=== PATIENT | female | born 1985 | race Two or more races ===

== ENCOUNTER → 2016-11-20 | Outpatient (CLI) | payer MEDICAID | LOC: RAD 14:19 | PROVIDERS: ATTEND Nurse Practitioner Women's Health | DX: Z34.81 Encounter for supervision of other normal pregnancy, first trimester (principal) | CPT/HCPCS: 76801 ==

== ENCOUNTER → 2017-01-18 | Outpatient (CLI) | payer SELFPAY ==
--- NOTE | 2017-01-18 15:24 | RADIOLOGY REPORT (SQ) ---
EXAM DESCRIPTION: U/S OB 14+ TRNABD 1GES W/O DOP COMPLETED DATE/TIME: 01/18/2017 3:11 pm REASON FOR STUDY: ENCOUNTER FOR SUPERVISION OF OTHER NORMAL , SECOND TRIMESTER Z34.82 ENCO UNTER FOR SUPRVSN OF NORMAL , SECOND TRI COMPARISON: None. TECHNIQUE: Static and Dynamic grayscale imaging performed of gravid uterus using transabdominal appr oach. Additional selected color Doppler and spectral images recorded. All stored on PACS. LIMITATIONS: None. FINDINGS: EGA: 19 weeks 6 days MIREYA: 06/08/2017 EFW: 317 g PERCENTILE: Not applicable. Fetus less than or equal to 20 weeks gestation. GIAN: Largest pocket 5 cm. PLACENTA: Posterior. PRESENTATION: Variable. ANATOMY: HEART RATE: 135 beats per minute. FOUR CHAMBER HEART: Visualized. THREE VESSEL CORD: Yes. CORD INSERTION: Visualized. KIDNEYS AND BLADDER: Urinary bladder not well visualized. STOMACH: Visualized. SPINE: Normal as visualized. BRAIN AND LATERAL VENTRICLES: Visualized. Appear normal. OTHER: No other significant finding. MATERNAL ADNEXA: Maternal ovaries not visualized. CERVICAL LENGTH: 3.1 cm. Closed. OTHER: No other significant finding. IMPRESSION: LIVING INTRAUTERINE . ESTIMATED GESTATIONAL AGE 19 weeks 6 days. NO VISUALIZED ANOMALIES. Trimester of : Second trimester - 13 weeks 1 day to 27 weeks 6 days. TECHNICAL DOCUMENTATION: JOB ID: [id number] [employer]- All Rights Reserved
== END ==
LOC: RAD 14:23
PROVIDERS: ATTEND Nurse Practitioner Women's Health
DX: Z34.82 Encounter for supervision of other normal pregnancy, second trimester (principal)
CPT/HCPCS: 76805

== ENCOUNTER → 2017-02-12 | Outpatient (CLI) | payer SELFPAY ==
--- NOTE | 2017-02-12 14:31 | RADIOLOGY REPORT (SQ) ---
EXAM DESCRIPTION: U/S OB 14+ TRNABD 1GES W/O DOP COMPLETED DATE/TIME: 02/12/2017 2:07 pm REASON FOR STUDY: Z34.82 ENCOUNTER FOR SUPRVSN OF NORMAL , SECOND TRI COMPARISON: 01/18/2017. TECHNIQUE: Limited transabdominal grayscale ultrasound for evaluation of specific requested obstetri joe parameters. LIMITATIONS: Limited study performed to exam the bladder which was not visualized on prior ult rasound. FINDINGS: BLADDER: Fluid filled bladder is visualized. CERVICAL LENGTH: 5.9 cm. Closed. FHR: 163 beats per minute. PRESENTATION: Breech. OTHER: No other significant findings. IMPRESSION: LIMITED OBSTETRICAL ULTRASOUND WITH MEASURED PARAMETERS DELINEATED ABOVE. Trimester of : Second trimester - 13 weeks 1 day to 27 weeks 6 days. TECHNICAL DOCUMENTATION: JOB ID: [id number] [place] [employer]- All Rights Reserved
== END ==
LOC: RAD 13:02
PROVIDERS: ATTEND Nurse Practitioner Women's Health
DX: Z34.82 Encounter for supervision of other normal pregnancy, second trimester (principal)
CPT/HCPCS: 76805

== ENCOUNTER → 2017-05-13 | Outpatient (CLI) | payer SELFPAY ==
--- NOTE | 2017-05-13 18:39 | RADIOLOGY REPORT (SQ) ---
EXAM DESCRIPTION: U/S OB 14+ TRNABD 1GES W/O DOP COMPLETED DATE/TIME: 05/13/2017 3:52 pm REASON FOR STUDY: ENCOUNTER FOR SUPERVISION OF OTHER NORMAL , THIRD TRIMESTER (Z34.8 Z34.83 ENCOUNTER FOR SUPRVSN OF NORMAL , THIRD TRIM COMPARISON: 02/12/2017. TECHNIQUE: Static and Dynamic grayscale imaging performed of gravid uterus using transabdominal appr oach. Additional selected color Doppler and spectral images recorded. All stored on PACS. LIMITATIONS: Limited anatomic imaging due to advanced age and position. FINDINGS: EGA: 35 week 4 day. MIREYA: 06/13/2017. EFW: 2935 g. grams PERCENTILE: 48%. GIAN: 9.8 cm. PLACENTA: Posterior fundal. PRESENTATION: Cephalic. HEART RATE: 162 beats per minute. CERVICAL LENGTH: Not adequately visualized. IMPRESSION: Limited anatomic survey due to advanced age and position. ESTIMATED GESTATIONAL AGE 35 WEEK 4 DAY. NO GROSS ABNORMAL FINDINGS. Trimester of : Third trimester - 28 weeks to delivery. TECHNICAL DOCUMENTATION: JOB ID: [id number] [employer]- All Rights Reserved
== END ==
LOC: RAD 15:05
PROVIDERS: ATTEND Nurse Practitioner Women's Health
DX: Z34.83 Encounter for supervision of other normal pregnancy, third trimester (principal)
CPT/HCPCS: 76805

== ENCOUNTER 2017-05-31 05:24 | Outpatient (CLI) | payer SELFPAY ==
[2017-05-31 06:46] LABS: URINE BARBITURATES SCREEN NEGATIVE; URINE METHADONE SCREEN NEGATIVE; URINE OPIATES LOW NEGATIVE; URINE PHENCYCLIDINE SCREEN NEGATIVE
[2017-05-31] MEDS ORDERED: HYDROXYZINE PAMOATE 50 MG CAPSULE PO ONE (06:55)
[2017-05-31] MEDS ORDERED: HYDROXYZINE PAMOATE 50 MG CAPSULE ONE (07:00)
--- NOTE | 2017-05-31 07:00 | Non Stress Test Report ---
Non Stress Test Datetime Report Generated by CPN: 05/31/2017 07:00 DEMOGRAPHIC EGA NST: 39.0 INDICATION Indication for Study: Other Indication for Study (NST) Other: contractions/labor check MONITORING Monitor Explained: Monitor Explained; Test Explained; Patient Verbalized Understanding Time on Monitor: 05/31/2017 06:10 Time off Monitor: 05/31/2017 06:45 NST Duration: 35 NST INTERVENTIONS NST Interventions: PO Hydration; Reposition Patient Physician Notified NST: Dr. Chen BABY A: [id number] BABY A Contraction Frequency : 1-4 FHR Baseline : 140 Accelerations : 15X15 Decelerations : None Variability : Moderate 6-25bpm NST Review: Meets Criteria for Reactive NST NST Review and Verified By : marina, rn NST REPORT Report Trigger: Send Report
[2017-05-31] MEDS ORDERED: OXYTOCIN/NORMAL SALINE 1,000 ML IV PRN (23:48)
[2017-05-31] MEDS ORDERED: BENZOCAINE/MENTHOL AEROSOL SPRAY 56 ML TOP PRN (23:48)
[2017-05-31] MEDS ORDERED: ZOLPIDEM TARTRATE 5 MG TABLET PO PRN (23:48)
[2017-05-31] MEDS ORDERED: ACETAMINOPHEN WITH CODEINE #3 TABLET PO PRN ×2 (23:48)
[2017-05-31] MEDS ORDERED: DIPH/PERTUSS(ACELL)/TETANUS VAC/PF 0.5 ML SYR (>=10YO) IM PRN (23:48)
[2017-05-31] MEDS ORDERED: MEASLES,MUMPS&RUBELLA VACC/PF 0.5 ML VIAL SUBCUT PRN (23:48)
[2017-05-31] MEDS ORDERED: DIBUCAINE 1% OINTMENT 28 GM TP PRN (23:48)
[2017-06-01] MEDS ORDERED: IBUPROFEN 800 MG TABLET PO SCH (06:00)
[2017-06-01] MEDS ORDERED: PRENATAL VITAMIN W-O CA NO5/FE FUMARATE/FA CAPSULE PO SCH (10:00)
[2017-06-01] MEDS ORDERED: DOCUSATE SODIUM 100 MG CAPSULE PO SCH (10:00)
[2017-06-01] MEDS ORDERED: SENNOSIDES/DOCUSATE 8.6-50 MG 1 EACH TABLET PO SCH (10:00)
[2017-06-01] MEDS ORDERED: FERROUS SULFATE 325 MG TABLET PO SCH (10:00)
== END 2017-05-31 07:16 | disposition home or self-care (01) ==
LOC: LC 05:24
PROVIDERS: ATTEND Obstetrics & Gynecology
PROC: 4A1HXCZ Monitoring of Products of Conception, Cardiac Rate, External Approach (ICD-10-PCS; principal; 2017-05-31)
DX: O47.1 False labor at or after 37 completed weeks of gestation (principal); Z3A.39 39 weeks gestation of pregnancy
CPT/HCPCS: 80307

== ENCOUNTER 2017-05-31 19:39 | Inpatient (IN) | payer SELFPAY ==
[2017-05-31] MEDS ORDERED: MISOPROSTOL 0.2 MG TABLET ONE (20:15)
[2017-05-31] MEDS ORDERED: LIDOCAINE 1% INJ-PF (10 MG/ML) 30 ML SDV ONE (20:15)
[2017-05-31] MEDS ORDERED: OXYTOCIN/NORMAL SALINE 20 UNIT/1,000 ML RTUINJ ONE (20:15)
[2017-05-31] MEDS ORDERED: RINGERS SOLUTION,LACTATED 1,000 ML IV PRN (20:16)
[2017-05-31 20:38] LABS: ABSOLUTE BASOPHILS # (AUTO) 0.1 10^3/uL (0.0-0.2); ABSOLUTE EOSINOPHILS # (AUTO) 0.1 10^3/uL (0.0-0.6); ABSOLUTE LYMPHOCYTES (AUTO) 2.6 10^3/uL (0.5-4.7); ABSOLUTE MONOCYTES (AUTO) 0.8 10^3/uL (0.1-1.4); ABSOLUTE NEUT (AUTO) 9.5 10^3/uL (1.7-8.2); EOSINOPHILS % (AUTO) 0.6 % (0-6); HEMATOCRIT 35.9 % (36.0-47.0); HGB HCT DIFFERENCE 0.1; MEAN CORPUSCULAR HEMOGLOBIN 28.4 pg (27.0-33.4); MEAN CORPUSCULAR HGB CONC 33.6 g/dL (32.0-36.0); MEAN CORPUSCULAR VOLUME 85 fl (80-97); RED BLOOD COUNT 4.24 10^6/uL (3.72-5.28); RED CELL DISTRIBUTION WIDTH 14.3 % (11.5-14.0); SEGMENTED NEUTROPHILS % (AUTO) 72.4 % (42-78); WHITE BLOOD COUNT 13.1 10^3/uL (4.0-10.5)
[2017-05-31 20:46] LABS: APPEARANCE,URINE CLOUDY; BILIRUBIN,URINE NEGATIVE (NEGATIVE); GLUCOSE, URINE NEGATIVE (NEGATIVE); KETONES,URINE TRACE mg/dL (NEGATIVE); LEUKOCYTE ESTERASE,URINE LARGE (NEGATIVE); NITRITE,URINE NEGATIVE (NEGATIVE); PROTEIN,URINE NEGATIVE (NEGATIVE); URINE SPECIFIC GRAVITY 1.011
[2017-05-31] MEDS ORDERED: EPHEDRINE SULFATE INJ 50 MG/1 ML AMPULE ONE (20:51)
[2017-05-31] MEDS ORDERED: FENTANYL/BUPIVACAINE/NS/PF 0 MCG/0 ML RTUINJ EPI ONE (20:52)
[2017-05-31] MEDS ORDERED: BUPIVACAINE HCL 0.25 % INJ/PF (2.5 MG/1 ML) 30 ML VIAL ONE (20:52)
[2017-05-31 21:13] LABS: URINE BARBITURATES SCREEN NEGATIVE; URINE METHADONE SCREEN NEGATIVE; URINE OPIATES LOW NEGATIVE; URINE PHENCYCLIDINE SCREEN NEGATIVE
[2017-05-31] MEDS ORDERED: ZOLPIDEM TARTRATE 5 MG TABLET PO PRN (22:08)
[2017-05-31] MEDS ORDERED: OXYTOCIN/NORMAL SALINE 20 UNIT/1,000 ML RTUINJ IV PRN (22:08)
[2017-05-31] MEDS ORDERED: DIPHENHYDRAMINE HCL 25 MG CAPSULE PO PRN (22:08)
[2017-05-31] MEDS ORDERED: BENZOCAINE/MENTHOL AEROSOL SPRAY 56 ML TOP PRN (22:08)
[2017-05-31] MEDS ORDERED: PSEUDOEPHEDRINE HCL 30 MG TABLET PO PRN (22:08)
[2017-05-31] MEDS ORDERED: PROMETHAZINE HCL 25 MG TABLET PO PRN (22:08)
[2017-05-31] MEDS ORDERED: MAGNESIUM HYDROXIDE SUSP 30 ML UDCUP PO PRN (22:08)
[2017-05-31] MEDS ORDERED: NA PHOS,M-B/NA PHOS,DI-BA (ADULT) 133 ML ENEMA PR PRN (22:08)
[2017-05-31] MEDS ORDERED: GLYCERIN/WITCH HAZEL LEAF 1 EACH MED..PAD TP PRN (22:08)
[2017-05-31] MEDS ORDERED: DIPH/PERTUSS(ACELL)/TETANUS VAC/PF 0.5 ML SYR (>=10YO) IM PRN (22:08)
[2017-05-31] MEDS ORDERED: ACETAMINOPHEN 650 MG SUPP.RECT PR PRN (22:08)
[2017-05-31] MEDS ORDERED: PROMETHAZINE HCL 25 MG SUPP.RECT PR PRN (22:08)
[2017-05-31] MEDS ORDERED: MEASLES,MUMPS&RUBELLA VACC/PF 0.5 ML VIAL SUBCUT PRN (22:08)
[2017-05-31] MEDS ORDERED: ACETAMINOPHEN WITH CODEINE #3 TABLET PO PRN ×2 (22:08)
[2017-05-31] MEDS ORDERED: PROMETHAZINE HCL INJ 25 MG/1 ML VIAL IV PRN (22:08)
[2017-05-31] MEDS ORDERED: DIBUCAINE 1% OINTMENT 28 GM TP PRN (22:08)
--- NOTE | 2017-05-31 23:38 | Delivery Summary ---
Del Sum A-C Datetime Report Generated by CPN: 05/31/2017 23:37 DELIVERY PERSONNEL DELIVERY PERSONNEL: [id number] Delivery Doctor:: Sugey Denise MD Labor and Delivery Nurse:: Renetta Coy RNtailor men's ready to wear Nurse:: Gretchen Lange RN Tool Clerk/VULCANIZER: Kate Escamilla, VULCANIZER MATERNAL INFORMATION Delivery Anesthesia: Pudendal Medications After Delivery: Pitocin Bolus-Please Comment; Pitocin Drip 20 Units/1000ml NSS; Other-Please Comment Meds After Delivery Comment: cytotec 1000 per rectum Estimated Blood Loss (ml): 300 Maternal Complications: Precipitous Labor (<3hrs) Provider Comments: VFI delivered in [place] presentation with tight nuchal cord unable to reduce therefore delivered through. Shoulders and body delivered without difficulty. cord doubly clamped and cut and infant to maternal abdomen for NRP. Placenta delivered intact spontaneously. FF at U. Cytotec given [place] 1000mcg due to macrosomia. Preliminary weight in room 10#4oz. Apgars 9/9. Await official weight. Mother and baby stable upon provider leaving the room. LABOR SUMMARY EDC: 06/08/2017 00:00 No. Babies in Womb: 1 Attempted: No Labor Anesthesia: None LABOR INFORMATION Reason for Induction: Not Applicable Onset of Labor: 05/31/2017 20:11 Complete Dilatation: 05/31/2017 21:40 Oxytocin: N/A Group B Beta Strep: Negative Antibiotics # of Doses: 0 Steroids Given: None Reason Steroids Not Administered: Not Applicable MEMBRANES Membranes Rupture Method: Artificial Rupture of Membranes: 05/31/2017 21:44 Length of Rupture (hr): 0.05 Amniotic Fluid Color: Clear Amniotic Fluid Amount: Small Amniotic Fluid Odor: None STAGES OF LABOR Stage 1 hr: 1 Stage 1 min: 29 Stage 2 hr: 0 Stage 2 min: 7 VAGINAL DELIVERY Episiotomy: None Laceration #1: Perineal Laceration Extension #1: First Degree Sponge Count Correct: Yes Sharps Count Correct: Yes BABY A INFORMATION Infant Delivery Date/Time: 05/31/2017 21:47 Method of Delivery: Vaginal Born in Route : No : N/A Forceps: N/A Vacuum Extraction: N/A Shoulder Dystocia : No PRESENTATION/POSITION BABY A Presentation: Cephalic Cephalic Presentation: Vertex Vertex Position: Left Occipital Anterior Breech Presentation: N/A PLACENTA INFORMATION BABY A Placenta Method of Delivery: Spontaneous Placenta Status: Delivered SCORES BABY A Heart Rate 1 min: >100 bpm Resp Effort 1 min: Good Cry Reflex Irritability 1 min: Cough or Sneeze or Pulls Away Muscle Tone 1 min: Active Motion Color 1 min: Body [place], Extremities Blue SCORE 1 MIN: 9 Heart Rate 5 min: >100 bpm Resp Effort 5 min: Good Cry Reflex Irritability 5 min: Cough or Sneeze or Pulls Away Muscle Tone 5 min: Active Motion Color 5 min: Body [place], Extremities Blue SCORE 5 MIN: 9 INFANT INFORMATION BABY A Gestational Age at Delivery: 38.6 Gestational Status: Early Term- 37- 38.6 Weeks Infant Outcome : Liveborn Condition : Stable (Annotations: Data stored by [facility] on behalf of user) Sex: Male IDENTIFICATION BABY A Infant Verification Date/Time: 05/31/2017 22:03 ID Band Number: [id number] Mother's Name Verified: Yes RN Verifying Infant: Hilda KAMRYN Lange Additional Verifying Personnel: Fitz Levy RN WEIGHT/LENGTH BABY A Infant Birthweight (gm): 4720 Weight (lb): 10 Weight (oz): 6 Length (in): 22.50 Length (cm): 57.15 CORD INFORMATION BABY A No. Cord Vessels: 3 Nuchal Cord : Around Neck x1, Tight Cord Blood Taken: Yes-For Storage (Mom's Blood type +) Infant Suction: Mouth; Nose ASSESSMENT BABY A Complications: None Physical Findings at Delivery: Within Normal Limits Respirations: Appears Normal Career Resource Specialist/ALS Called : No Care By: Hilda Lange RN Transferred To: Remains with Mother SIGNATURES Signature: with User ID: [email or web address]
--- NOTE | 2017-06-01 00:19 | Admission Physical ---
Datetime Report Generated by CPN: 06/01/2017 00:18 CURRENT ADMISSION Chief Complaint: Uterine Contractions Indication for Induction: Not Applicable Indication for Induction: Term, Intrauterine ; Active Labor; Intact Membranes Admit Plan: Admit to Unit; Initiate Labor Protocol ALLERGIES Medication Allergies: No Medication Allergies: No Known Allergies (03/15/2015) Latex: No Latex Allergies Food Allergies: N/A OBSTETRICAL HISTORY EDC: 06/08/2017 00:00 : 3 Para: 2 Term: 2 : 0 SAB: 0 IAB: 0 Ectopic: 0 Livin Cesareans: 0 VBACs: 0 Multiple Births: 0 Gestational Diabetes: No Rh Sensitization: No Incompetent Cervix: No JERRICA: No Infertility: No ART Treatment: No Uterine Anomaly: No IUGR: No Hx Previous C/S: No Macrosomia: Yes Hx Loss/Stillborn: No PIH: No Hx : No Placenta Previa/Abruption: No Depression/PP Depression: No PTL/PROM: No Post Hemorrhage: No Current Procedures: Ultrasound; NST Obstetrical History Comments: [id number] G3-current SEE RECORDS Alcohol: No Marijuana : No Cocaine: No Other Illicit Drugs: No Cigarettes: Former Smoker. [id number] MEDICAL HISTORY Blood Transfusion: No Pulmonary Disease (Asthma, TB): No Breast Disease: No Hypertension: No Book Publisher Surgery: No Heart Disease: No Hosp/Surgery: No Autoimmune Disorder: No Anesthetic Complications: No Abnormal Pap Smear: No Neuro/Epilepsy: No Psychiatric Disorders: No Other Medical Diseases: No Hepatitis/Liver Disease: No Significant Family History: No Varicosities/Phlebitis: No Trauma/Violence : No Thyroid Dysfunction: No INFECTIOUS HISTORY Gonorrhea: No Genital Herpes: No Chlamydia: No Tuberculosis: No Syphilis: No Hepatitis: No HIV/AIDS Exposure: No Rash or Viral Illness: No HPV: No PHYSICAL EXAM General: Normal HEENT: Normal Neurologic: Normal Thyroid: Normal Heart: Normal Lungs: Normal Breast: Deferred Back: Normal Abdomen: Normal Genitourinary Exam: Normal Extremities: Normal DTRs: Normal Pelvic Type: Adequate Vital Signs: Reviewed VAGINAL EXAM Dilatation: 7 Effacement: 100 Station: -1 Contraction Comments: q 2-3 FETUS A EGA: 38.6 Monitoring: External US FHR- Baseline: 145 Variability: Moderate 6-25bpm Accelerations: 15X15 Decelerations: None FHR Category: Category I FHR Comments: reassuring FHR Presentation: Vertex Admit Comment: 31yo at 38+6ega by LMP c/w 11+3eg US presents for regular uterine ctx since this am. GBS negative. and care followed at the [facility]. H/o 9#15 and 10#15 ([facility] notes state 9#5oz and 10#). Translation services used. Pt reports ctx all day since discharged this am and reports poss LOF at 1400 today. Bulging bag of water on exam. EFW on 05/13 was 2935g (6#4oz) EFW limited by habitus 8# and pelvis adequate for TORI. US printed for chart. Failed 1 hr GTT - passed 3 hr GTT. AFP negaitve. Admit to L_D. Pelvis adequate for TORI and proven to at least 10#. records reviewed and placed in chart. PLANS FOR LABOR AND DELIVERY Labor and Delivery: None Pain Management: Epidural Feeding Preference: Both Benefit of Breast Feed Discussed: Yes Circumcision: N/A INFORMED CONSENT Informed Consent Obtained: Vaginal Delivery; Risks, Benefits and Alternatives Discussed Signature: with User ID: [email or web address]
[2017-06-01] MEDS ORDERED: PROMETHAZINE HCL INJ 25 MG/1 ML VIAL IV PRN ×2 (00:34→06:02)
[2017-06-01] MEDS ORDERED: PSEUDOEPHEDRINE HCL 30 MG TABLET PO PRN ×2 (00:34→06:02)
[2017-06-01] MEDS ORDERED: ZOLPIDEM TARTRATE 5 MG TABLET PO PRN ×2 (00:34→06:00)
[2017-06-01] MEDS ORDERED: OXYTOCIN/NORMAL SALINE 1,000 ML IV PRN (00:34)
[2017-06-01] MEDS ORDERED: DIBUCAINE 1% OINTMENT 28 GM TP PRN ×2 (00:34→06:00)
[2017-06-01] MEDS ORDERED: DIPH/PERTUSS(ACELL)/TETANUS VAC/PF 0.5 ML SYR (>=10YO) IM PRN ×2 (00:34→06:01)
[2017-06-01] MEDS ORDERED: DIPHENHYDRAMINE HCL 25 MG CAPSULE PO PRN ×2 (00:34→06:02)
[2017-06-01] MEDS ORDERED: MAGNESIUM HYDROXIDE SUSP 30 ML UDCUP PO PRN ×2 (00:34→06:02)
[2017-06-01] MEDS ORDERED: PROMETHAZINE HCL 25 MG SUPP.RECT PR PRN (00:34)
[2017-06-01] MEDS ORDERED: BENZOCAINE/MENTHOL AEROSOL SPRAY 56 ML TOP PRN ×2 (00:34→06:01)
[2017-06-01] MEDS ORDERED: ACETAMINOPHEN 650 MG SUPP.RECT PR PRN ×2 (00:34→06:02)
[2017-06-01] MEDS ORDERED: MEASLES,MUMPS&RUBELLA VACC/PF 0.5 ML VIAL SUBCUT PRN ×2 (00:34→06:01)
[2017-06-01] MEDS ORDERED: PROMETHAZINE HCL 25 MG TABLET PO PRN ×2 (00:34→06:02)
[2017-06-01] MEDS ORDERED: GLYCERIN/WITCH HAZEL LEAF 1 EACH MED..PAD TP PRN ×2 (00:34→06:02)
[2017-06-01] MEDS ORDERED: ACETAMINOPHEN WITH CODEINE #3 TABLET PO PRN ×3 (00:34→06:00)
[2017-06-01] MEDS ORDERED: NA PHOS,M-B/NA PHOS,DI-BA (ADULT) 133 ML ENEMA PR PRN ×2 (00:34→06:02)
[2017-06-01] MEDS ORDERED: IBUPROFEN 800 MG TABLET PO SCH ×2 (06:00)
[2017-06-01] MEDS ORDERED: OXYTOCIN/NORMAL SALINE 20 UNIT/1,000 ML RTUINJ IV PRN (06:02)
[2017-06-01] MEDS: IBUPROFEN 800 MG TABLET PO SCH ×3 (06:17→22:08)
[2017-06-01 07:51] LABS: HEMATOCRIT 33.7 % (36.0-47.0); HEMOGLOBIN 11.2 g/dL (12.0-15.5); HGB HCT DIFFERENCE -0.1; MEAN CORPUSCULAR HEMOGLOBIN 28.5 pg (27.0-33.4); MEAN CORPUSCULAR HGB CONC 33.4 g/dL (32.0-36.0); MEAN CORPUSCULAR VOLUME 85 fl (80-97); RED BLOOD COUNT 3.94 10^6/uL (3.72-5.28); RED CELL DISTRIBUTION WIDTH 14.4 % (11.5-14.0); WHITE BLOOD COUNT 13.4 10^3/uL (4.0-10.5)
[2017-06-01] MEDS ORDERED: FAMOTIDINE 20 MG TABLET PO SCH ×2 (10:00)
[2017-06-01] MEDS ORDERED: SENNOSIDES/DOCUSATE 8.6-50 MG 1 EACH TABLET PO SCH ×2 (10:00)
[2017-06-01] MEDS ORDERED: DOCUSATE SODIUM 100 MG CAPSULE PO SCH ×2 (10:00)
[2017-06-01] MEDS ORDERED: FERROUS SULFATE 325 MG TABLET PO SCH ×2 (10:00)
[2017-06-01] MEDS ORDERED: PRENATAL VITAMIN W-O CA NO5/FE FUMARATE/FA CAPSULE PO SCH ×3 (10:00)
--- NOTE | 2017-06-01 10:19 | PDOC PROGRESS REPORT ---
Subjective-OB Subjective: Post Delivery Day: 1 31 year old. Denies any needs at this time, lochia stable, pain well controlled , voiding without difficulty Physical Exam (OB) Vital Signs: Temp Pulse Resp BP Pulse Ox 97.7 F 81 20 128/68 H 98 06/01/17 08:14 06/01/17 08:14 06/01/17 08:14 06/01/17 08:14 06/01/17 08:14 - PIH/Pre-Eclampsia Clonus: Negative Headache: Absent Epigastric Pain: No Visual Changes: No - Lochia Lochia Amount: Scant < 10 ml Lochia Color: Rubra/Red - Abdomen Description: Soft, Flat Hernia Present: No Fundal Description: Firm, Midline Fundal Height: u/u - u/2 Objective-Diagnostic Laboratory: 06/01/17 07:05 05/31/17 05/31/17 05/31/17 19:50 20:25 20:25 WBC 13.1 H RBC 4.24 Hgb 12.0 Hct 35.9 L MCV 85 MCH 28.4 MCHC 33.6 RDW 14.3 H Plt Count 238 Seg Neutrophils % 72.4 Lymphocytes % 20.0 Monocytes % 6.0 Eosinophils % 0.6 Basophils % 1.0 Absolute Neutrophils 9.5 H Absolute Lymphocytes 2.6 Absolute Monocytes 0.8 Absolute Eosinophils 0.1 Absolute Basophils 0.1 Urine Color YELLOW Urine Appearance CLOUDY Urine pH 6.0 Ur Specific [place] 1.011 Urine Protein NEGATIVE Urine Glucose (UA) NEGATIVE Urine Ketones TRACE H Urine Blood LARGE H Urine Nitrite NEGATIVE Ur Leukocyte Esterase LARGE H Blood Type A POSITIVE Antibody Screen NEGATIVE 06/01/17 07:05 WBC 13.4 H RBC 3.94 Hgb 11.2 L Hct 33.7 L MCV 85 MCH 28.5 MCHC 33.4 RDW 14.4 H Plt Count 203 Seg Neutrophils % Lymphocytes % Monocytes % Eosinophils % Basophils % Absolute Neutrophils Absolute Lymphocytes Absolute Monocytes Absolute Eosinophils Absolute Basophils Urine Color Urine Appearance Urine pH Ur Specific [place] Urine Protein Urine Glucose (UA) Urine Ketones Urine Blood Urine Nitrite Ur Leukocyte Esterase Blood Type Antibody Screen Assessment and Plan(PN) - Assessment and Plan (1) Macrosomia of fetus affecting management of mother in third trimester Qualifiers: Fetus number: single or unspecified fetus Qualified Code(s): O36.63X0 - Maternal care for excessive growth, third trimester, not applicable or unspecified Is this a current diagnosis for this admission?: Yes Plan: hgbA1c ordered (2) Vaginal delivery Is this a current diagnosis for this admission?: Yes Plan: routine pp care - Time Spent with Patient Time with patient: Less than 15 minutes Critical Time spent with patient: Less than 15 minutes Medications reviewed and adjusted accordingly: Yes - Disposition Anticipated Discharge: Home Within: within 24 hours
[2017-06-01] MEDS: FERROUS SULFATE 325 MG TABLET PO SCH ×2 (10:22→17:28)
[2017-06-01] MEDS: FAMOTIDINE 20 MG TABLET PO SCH ×2 (10:22→22:08)
[2017-06-01] MEDS: DOCUSATE SODIUM 100 MG CAPSULE PO SCH ×2 (10:22→17:28)
[2017-06-01] MEDS: SENNOSIDES/DOCUSATE 8.6-50 MG 1 EACH TABLET PO SCH (10:22)
[2017-06-01] MEDS: PRENATAL VITAMIN W DHA CAPSULE PO SCH (10:22)
[2017-06-02] MEDS: IBUPROFEN 800 MG TABLET PO SCH (05:45)
--- NOTE | 2017-06-02 10:02 | PDOC DISCHARGE SUMMARY ---
Final Diagnosis Discharge Date: 06/02/17 - Final Diagnosis (1) Macrosomia of fetus affecting management of mother in third trimester Is this a current diagnosis for this admission?: Yes (2) Vaginal delivery Is this a current diagnosis for this admission?: Yes Discharge Data - Discharge Medication Home Medications: Pnv W-O Ca No5/Fe Fumarate/FA [-U Multiple Vitamin Capsule] 1 cap PO DAILY MDD 1 tab 12/05/12 Docusate Sodium [Colace 100 mg Capsule] 100 mg PO BID #60 capsule 06/02/17 Ibuprofen [Motrin 800 mg Tablet] 800 mg PO Q8 #60 tablet 06/02/17 Gestational Age: 38.6 Reason(s) for Admission: Induction of Labor, Other - hx macrosomic infants Procedures: NST Intrapartum Procedure(s): Spontaneous Vaginal Delivery - Data Baby 1 Female at 1 minute: 9 at 5 minutes: 9 Weight: 4720 kg Home with Mother: Yes Complications: No - Diagnosis Test Laboratory: Temp Pulse Resp BP Pulse Ox 97.6 F 63 16 136/96 H 100 06/02/17 08:07 06/02/17 08:07 06/02/17 08:07 06/02/17 08:07 06/02/17 08:07 05/31/17 05/31/17 06/01/17 19:50 20:25 07:05 RBC 4.24 3.94 Hgb 12.0 11.2 L Hct 35.9 L 33.7 L Urine Opiates Screen NEGATIVE - Discharge information/Instructions Discharge Activity: Activity As Tolerated, Pelvic Rest, No tub bath Discharge Diet: Regular Disposition: HOME, SELF-CARE Follow up with: [facility] in: 4, Weeks
[2017-06-02 10:50] VITALS: BP 140/80
[2017-06-02] MEDS: SENNOSIDES/DOCUSATE 8.6-50 MG 1 EACH TABLET PO SCH (11:01)
[2017-06-02] MEDS: PRENATAL VITAMIN W DHA CAPSULE PO SCH (11:01)
[2017-06-02] MEDS: FAMOTIDINE 20 MG TABLET PO SCH (11:01)
[2017-06-02] MEDS: DOCUSATE SODIUM 100 MG CAPSULE PO SCH (11:02)
[2017-06-02] MEDS: FERROUS SULFATE 325 MG TABLET PO SCH (11:02)
== END 2017-06-02 12:38 | disposition home or self-care (01) | DRG 775 ==
LOC: LC 19:39 → LR 20:18 → 2S 06-01 00:18
PROVIDERS: ADMIT Student in an Organized Health Care Education/Training Program; ATTEND Student in an Organized Health Care Education/Training Program
PROC: 10E0XZZ Delivery of Products of Conception, External Approach (ICD-10-PCS; principal; 2017-05-31)
PROC: 4A1HXCZ Monitoring of Products of Conception, Cardiac Rate, External Approach (ICD-10-PCS; 2017-05-31)
DX: O62.3 Precipitate labor (principal); O69.1XX0 Labor and delivery complicated by cord around neck, with compression, not applicable or unspecified; O70.0 First degree perineal laceration during delivery; O36.63X0 Maternal care for excessive fetal growth, third trimester, not applicable or unspecified; Z3A.38 38 weeks gestation of pregnancy; Z87.891 Personal history of nicotine dependence; Z37.0 Single live birth
CPT/HCPCS: 36415; 80307; 81005; 83036; 85025; 85027; 86592; 86850; 86900; 86901; 88307; J2590; J3490

== ENCOUNTER 2018-07-06 14:36 | Emergency (ER) | payer SELFPAY ==
[2018-07-06] MEDS ORDERED: KETOROLAC TROMETHAMINE INJ/PF 30 MG/1 ML SDV IV ONE (17:17)
[2018-07-06] MEDS ORDERED: CLINDAMYCIN 900 MG/D5W RTU 900 MG/50 ML RTUPB IV ONE (17:17)
--- NOTE | 2018-07-06 17:23 | ER Document Report ---
ED Oral Problem - General Chief Complaint: Toothache Stated Complaint: TOOTH PAIN Time Seen by Provider: 07/06/18 16:03 Mode of Arrival: Ambulatory Information source: Patient Notes: 32-year-old female presented to ED for complaint of dental pain and swelling to the left side of her jaw. The dentist sent her to the emergency room to consult on oral surgeon. There is no oral surgeon in the emergency room. They stated that they were close to take out tooth #17 but patient stated she could not open her mouth and she had swelling and pain to the jaw and was having trouble swallowing and eating. Patient states she has had pain in this jaw for 2 months swelling to the jaw for 2 weeks and has not been able to open her mouth more than a fingers with in a week. Patient denies any other problems at this time. Patient is alert oriented respirations regular and unlabored speaking in full sentences. TRAVEL OUTSIDE OF THE [place] IN LAST 30 DAYS: No - HPI Patient complains to provider of: Swelling of jaw, Toothache, Other - Able to eat as she cannot open her jaw for the last week Onset: Other - Pain for 2 months swelling for 2 weeks unable to open the jaw for a week Onset: Gradual Quality of pain: Sharp, Throbbing Severity: Moderate Pain Level: 4 Associated symptoms: Toothache Worsened by: Other Relieved by: Nothing Similar symptoms previously: Yes Recently seen / treated by doctor/dentist: Yes - Related Data Allergies/Adverse Reactions: No Known Allergies Allergy (Verified 07/06/18 14:37) Past Medical History - General Information source: Patient - Social History Smoking Status: Never Smoker Frequency of alcohol use: None Drug Abuse: None Lives with: Family Family History: Reviewed & Not Pertinent Patient has suicidal ideation: No Patient has homicidal ideation: No - Past Medical History Cardiac Medical History: Reports: None Pulmonary Medical History: Reports: None EENT Medical History: Reports: None Neurological Medical History: Reports: None Endocrine Medical History: Reports: None Renal/ Medical History: Reports: None Malignancy Medical History: Reports: None GI Medical History: Reports: None Musculoskeletal Medical History: Reports None Skin Medical History: Reports None Psychiatric Medical History: Reports: None Traumatic Medical History: Reports: None Infectious Medical History: Reports: None Surgical Hx: Negative Past Surgical History: Reports: None - Immunizations Hx Diphtheria, Pertussis, Tetanus Vaccination: Yes Review of Systems - Review of Systems Constitutional: No symptoms reported EENT: Mouth pain, Mouth swelling, Dental problem Cardiovascular: No symptoms reported Respiratory: No symptoms reported Gastrointestinal: No symptoms reported Genitourinary: No symptoms reported Female Genitourinary: No symptoms reported Musculoskeletal: No symptoms reported Skin: No symptoms reported Hematologic/Lymphatic: No symptoms reported Neurological/Psychological: No symptoms reported -: Yes All other systems reviewed and negative Physical Exam - Vital signs Vitals: Temp Pulse Resp BP Pulse Ox 98.8 F 92 16 137/82 H 100 07/06/18 15:16 07/06/18 15:16 07/06/18 15:16 07/06/18 15:16 07/06/18 15:16 Interpretation: Normal - General General appearance: Appears well, Alert General appearance pediatric: Attentiveness normal, Good eye contact - HEENT Head: Normocephalic, Atraumatic Eyes: Normal Pupils: PERRL Sinus: Normal Nasal: Normal Mouth/Lips: Caries - Patient has pain to tooth #17 with swelling around the tooth. Patient states she is unable to open her mouth more than a finger width. Mucous membranes: Normal Pharynx: Other - Difficulty opening her jaw Neck: Anterior cervical chain - Respiratory Respiratory status: No respiratory distress Chest status: Nontender Breath sounds: Normal Chest palpation: Normal - Cardiovascular Rhythm: Regular Heart sounds: Normal auscultation Murmur: No - Abdominal Inspection: Normal Distension: No distension Bowel sounds: Normal Tenderness: Nontender Organomegaly: No organomegaly - Back Back: Normal, Nontender - Extremities General upper extremity: Normal inspection, Nontender, Normal color, Normal ROM, Normal temperature General lower extremity: Normal inspection, Nontender, Normal color, Normal ROM, Normal temperature, Normal weight bearing. No: Khadijah's sign - Neurological Neuro grossly intact: Yes Cognition: Normal Orientation: AAOx4 Bobbi Coma Scale Eye Opening: Spontaneous Bobbi Coma Scale Verbal: Oriented [place] Coma Scale Motor: Obeys Commands Ped Bobbi Coma Scale Eye Opening: Spontaneous Ped Bobbi Coma Scale Verbal: Age appropriate verbal Ped [place] Coma Scale Motor: Spontaneous Movements Speech: Normal Motor strength normal: LUE, RUE, LLE, RLE Sensory: Normal - Psychological Associated symptoms: Normal affect, Normal mood - Skin Skin Temperature: Warm Skin Moisture: Dry Skin Color: Normal Course - Re-evaluation Re-evalutation: 07/06/18 17:[address] Granger via telephone. He recommended 900 mg of clindamycin in the emergency room IV and have her come to his office at 8:15 in the morning. Patient is not to eat or drink anything after midnight tonight. He stated they would work out payment plan when she comes to the office in the morning. - Vital Signs Vital signs: Temp Pulse Resp BP Pulse Ox 97.7 F 88 18 117/68 99 07/06/18 18:02 07/06/18 18:02 07/06/18 18:02 07/06/18 18:02 07/06/18 18:02 Discharge - Discharge Clinical Impression: Pain due to dental caries Condition: Stable Disposition: HOME, SELF-CARE Additional Instructions: TOOTHACHE: Your pain is due to dental decay. The tooth must be repaired in order for you to feel better. You will, therefore, be referred to a dentist. We do not have dentists on the staff at [facility]. Severe swelling or drainage around a tooth usually means a dental abscess. This also requires evaluation and treatment by the dentist, but antibiotics may be prescribed while awaiting dental treatment. You should be rechecked immediately if you develop major swelling of the face, increasing pain, a lump in the jaw or gums, headache, difficulty swallowing, or fever. CLINDAMYCIN: You have been given an iv dose of clindamycin. It is often prescribed for infections in the mouth, such as dental infections or abscesses, and for skin infections due to MRSA. You will be going to the oral surgeon first thing in the morning. You have an appointment at [address] Granger. Do not eat or drink anything after midnight tonight. Common side effects of antibiotics include nausea, intestinal cramping, or diarrhea. Women may develop vaginal yeast infections, and babies can get yeast (thrush) in the mouth following the use of antibiotics. Contact your physician if you develop significant side effects from this medication. Allergy to this antibiotic can result in hives, wheezing, faintness, or itching. If symptoms of allergy occur, stop the medication and call the doctor. Toradol Injection You have been given an injection of ketorolac tromethamine (Toradol). This is an excellent, safe drug for pain control. It also has potent antiinflammatory action. You should have significant pain relief within about one hour. Toradol is not addicting and is non-sedating. It does not interfere with driving or work. Call or return if you develop itching, hives, shortness of breath, or rash. FOLLOW-UP CARE: You are to be at Dr. Granger's office at 8:15 in the morning. He has instructed that you are not to eat or drink anything after midnight tonight. Forms: Elevated Blood Pressure Referrals: PETROS GRANGER MD [ACTIVE STAFF] - Follow up tomorrow (You are to be at Dr. Granger's office at 8:15 in the morning. You are not to eat or drink anything after midnight tonight.)
[2018-07-06 18:03] VITALS: BP 117/68
== END 2018-07-06 18:22 | disposition home or self-care (01) ==
LOC: ER 14:36
DX: K02.9 Dental caries, unspecified (principal); R22.0 Localized swelling, mass and lump, head; K08.89 Other specified disorders of teeth and supporting structures
CPT/HCPCS: 99282; 96375; 96365; J1885

== ENCOUNTER 2018-12-29 19:44 | Emergency (ER) | payer SELFPAY ==
[2018-12-29] MEDS ORDERED: DEXAMETHASONE SOD PHOS INJ 10 MG/1 ML VIAL IV ONE (20:57)
[2018-12-29] MEDS ORDERED: MORPHINE SULFATE 10 MG/ML INJ IV ONE (20:57)
[2018-12-29] MEDS ORDERED: NORMAL SALINE 1000 ML 2,000 ML IV ONE (20:57)
[2018-12-29] MEDS ORDERED: PENICILLIN G BENZATHINE 1.2 MILLION UNIT/2 ML DISP.SYRIN IM ONE (20:57)
[2018-12-29] MEDS ORDERED: KETOROLAC TROMETHAMINE INJ/PF 30 MG/1 ML SDV IV ONE (20:58)
--- NOTE | 2018-12-29 21:17 | ER Document Report ---
ED ENT - General Chief Complaint: Sore Throat Stated Complaint: SORE THROAT Time Seen by Provider: 12/29/18 20:19 Mode of Arrival: Ambulatory Information source: Patient Notes: Patient is a 33-year-old female presented to the emergency department with chief complaint of sore throat and chills that began yesterday. Patient denies any known fevers. She reports that she has never had strep throat in the past. She does report difficulty and painful swallowing. She is speaking in complete sentences unable to swallow her saliva however. She denies any nausea, vomiting, diarrhea. TRAVEL OUTSIDE OF THE [place] IN LAST 30 DAYS: No - Related Data Allergies/Adverse Reactions: No Known Allergies Allergy (Verified 12/30/18 11:42) Past Medical History - General Information source: Patient - Social History Smoking Status: Never Smoker Frequency of alcohol use: None Drug Abuse: None Family History: Reviewed & Not Pertinent Patient has suicidal ideation: No Patient has homicidal ideation: No - Medical History Medical History: Negative Renal/ Medical History: Denies: Hx Peritoneal Dialysis Surgical Hx: Negative Review of Systems - Review of Systems Constitutional: Fever EENT: Throat pain Cardiovascular: No symptoms reported Respiratory: No symptoms reported Gastrointestinal: No symptoms reported Genitourinary: No symptoms reported Female Genitourinary: No symptoms reported Musculoskeletal: No symptoms reported Skin: No symptoms reported Hematologic/Lymphatic: No symptoms reported Neurological/Psychological: No symptoms reported Physical Exam - Vital signs Vitals: Temp Pulse Resp BP Pulse Ox 98.1 F 117 H 16 132/88 H 99 12/29/18 20:05 12/29/18 20:05 12/29/18 20:05 12/29/18 20:05 12/29/18 20:05 - Notes Notes: PHYSICAL EXAMINATION: GENERAL: Well-appearing, well-nourished and in no acute distress. HEAD: Atraumatic, normocephalic. EYES: Pupils equal round and reactive to light, extraocular movements intact, conjunctiva are normal. ENT: Nares patent, oropharynx mildly erythematous, tonsillar swelling with exudates noted, uvula midline, no evidence of peritonsillar abscess. Moist mucous membranes. NECK: Normal range of motion, supple without lymphadenopathy LUNGS: Breath sounds clear to auscultation bilaterally and equal. No wheezes rales or rhonchi. HEART: Regular rate and rhythm without murmurs ABDOMEN: Soft, nontender, nondistended abdomen. No guarding, no rebound. No masses appreciated. Female : deferred Musculoskeletal: Normal range of motion, no pitting or edema. No cyanosis. NEUROLOGICAL: Cranial nerves grossly intact. Normal speech, normal gait. Normal sensory, motor exams PSYCH: Normal mood, normal affect. SKIN: Warm, Dry, normal turgor, no rashes or lesions noted. Course - Re-evaluation Re-evalutation: Tonsillar swelling with exudates noted, no evidence of peritonsillar abscess. Patient with tachycardia at the time of arrival. Rapid strep is positive. Patient will be given IV steroids, 2 L of IV fluids, pain medications and IM penicillin. Will reevaluate patient prior to discharge to ensure that her vital signs are improving. - Vital Signs Vital signs: Temp Pulse Resp BP Pulse Ox 99.3 F 98 16 115/72 98 12/29/18 22:49 12/29/18 22:49 12/29/18 22:49 12/29/18 22:49 12/29/18 22:49 Discharge - Discharge Clinical Impression: Strep throat Condition: Stable Disposition: HOME, SELF-CARE Instructions: Strep Throat ([facility]) Additional Instructions: STREP THROAT: Your sore throat is due to the streptococcus germ (strep throat). Strep throat usually makes you feel quite ill with fever and aches, headache, swollen sore throat, and tender bumps under the angles of the jaw. Strep throat requires antibiotic treatment. Although the sore throat may go away by itself, complications such as rheumatic fever, kidney disease, or throat abscess can occur. We usually prescribe antibiotics by mouth. Be sure to take the medicine until it's gone. If you stop early, the strep may come back. If you are vomiting, are severely ill, or can't remember to take pills, we can give you an antibiotic shot. Take acetaminophen or ibuprofen for pain and fever. Sip frequent clear liquids, or use popsicles or ice chips. Anesthetic sprays or lozenges may help. Make sure the air in the room is not too dry. Avoid using decongestants or antihistamines. Call the doctor if there is no improvement in three days, or if you have difficulty breathing, increasing throat pain, high fever, rash, or frequent vomiting. PENICILLIN V K: You have been given a prescription for Penicillin VK. Your physician has determined that this is the best antibiotic for your condition. Pen VK can be taken with meals, however more of the antibiotic gets into the bloodstream if it's taken on an empty stomach. Penicillin usually has no side effects. However, allergy to penicillins is common. If you have had an allergic reaction to any drug of the penicillin family, you should never take any other penicillin. Notify your doctor at once if you develop hives, itching, swelling, faintness, or shortness of breath. STEROID MEDICATION: You have been given a medicine of the cortisone/steroid class. This medication is used to control inflammation or allergy. It is usually only given for a short period of time, until the acute process subsides. There are usually no side effects from short-term use of cortisone-like medications. Some persons feel an increased sense of well-being and are not sleepy at bedtime. Long-term use of cortisone medications is best avoided, unless required for a severe condition. If your condition does not remit, or relapses after the course of corticosteroid medication, you should consult your physician. FOLLOW-UP CARE: If you have been referred to a physician for follow-up care, call the physicians office for an appointment as you were instructed or within the next two days. If you experience worsening or a significant change in your symptoms, notify the physician immediately or return to the Emergency Department at any time for re-evaluation. Your rapid strep test was positive today. You were given a dose of antibiotics in a shot. There is no need for any prescription. You were also given a dose of steroids today. Please continue to take Tylenol and/or ibuprofen for the next 24 to 48 hours. Return to the emergency department with any new or worsening symptoms to include difficulty breathing, difficulty s wallowing or worsening swelling in your throat. Prescriptions: Oxycodone HCl/Acetaminophen [Percocet 5-325 mg Tablet] 1 - 2 tab PO Q4H PRN #15 tablet PRN Reason: Forms: Return to Work Print Language: Citizen Of [place]
[2018-12-29 22:49] VITALS: BP 115/72
== END 2018-12-29 22:55 | disposition home or self-care (01) ==
LOC: EDBD → ER 19:44 → MERGE 19:44 → ER 22:55
DX: J02.0 Streptococcal pharyngitis (principal); R00.0 Tachycardia, unspecified
CPT/HCPCS: 99283; 96372; 96361; 96374; 96375; 87880; J1885; J2270; J0561; J7030; J1100